=== PATIENT | female | born 1975 | race Caucasian/White ===

== ENCOUNTER 2020-05-18 09:07 | Outpatient (REF) | payer OTHER, SELFPAY ==
[2020-05-18 11:43] LABS: Hematocrit 35.4 % (37-47); Hemoglobin 10.3 g/dl (12.0-16.0); Mean Corpuscular HGB Conc 29.1 g/dl (31.0-35.0); Mean Corpuscular Hemoglobin 20.8 pg (27.0-33.0); Mean Corpuscular Volume 71.4 fL (80-98); Mean Platelet Volume 10.6 fL (9.4-12.3); Platelet Count 435 X10*3/uL (160-400); Red Blood Count 4.96 X10*6/uL (4.20-5.50); Red Cell Distribution Width 20.3 % (11.0-16.0); White Blood Count 6.5 X10*3/uL (4.8-10.8)
[2020-05-18 12:37] LABS: Thyroid Stimulating Hormone 0.56 uIU/mL (0.32-4.0)
[2020-05-21 08:47] LABS: C. trachomatis RNA TMA NOT DETECTED (NOT DETECTED); N. gonorrhoeae RNA TMA NOT DETECTED (NOT DETECTED)
[2020-05-22 02:47] LABS: HPV mRNA E6/E7 rflx Not Detected (Not Detected)
== END 2020-05-18 09:08 | disposition home or self-care (01) ==
LOC: HO.LAB 09:07
PROVIDERS: Visit Provider Advanced Practice Midwife
DX: Z12.4 Encounter for screening for malignant neoplasm of cervix (principal); N92.0 Excessive and frequent menstruation with regular cycle; N39.3 Stress incontinence (female) (male); D64.9 Anemia, unspecified; Z20.2 Contact with and (suspected) exposure to infections with a predominantly sexual mode of transmission
CPT/HCPCS: 36415; 84443; 85027; 87491; 87591; 87624; 88142

== ENCOUNTER 2020-05-30 15:44 | Outpatient (REF) | payer OTHER, SELFPAY ==
--- NOTE | 2020-05-30 15:44 | US_ITS ---
EXAMINATION: PELVIC ULTRASOUND CLINICAL INFORMATION: Excessive and frequent menstruation with regular cycles COMPARISON: None TECHNIQUE: Transabdominal and transvaginal pelvic ultrasound was performed. Transvaginal exam was performed for better visualization of the uterus and ovaries. FINDINGS: The uterus is anteverted and measures 8.9 x 3.7 x 5.4 cm in dimension. No focal uterine lesion is seen. Endometrial thickness is normal estimated at 0.7 cm. There are nabothian cysts in the cervix. The right ovary is normal-appearing and measures 3.6 x 2.4 x 1.9 cm. The left ovary measures 3.8 x 2.6 x 2.6 cm and contains a complex cyst with thickened wall measuring 1.7 x 1.2 x 1.3 cm. There is no fluid in the pelvis. US/US transvaginal IMPRESSION: Small 1.7 x 1.2 x 1.3 cm complex left ovarian cyst with thickened wall. This may represent a resolving physiologic cyst.
--- NOTE | 2020-05-30 15:44 | US_ITS ---
EXAMINATION: PELVIC ULTRASOUND CLINICAL INFORMATION: Excessive and frequent menstruation with regular cycles COMPARISON: None TECHNIQUE: Transabdominal and transvaginal pelvic ultrasound was performed. Transvaginal exam was performed for better visualization of the uterus and ovaries. FINDINGS: The uterus is anteverted and measures 8.9 x 3.7 x 5.4 cm in dimension. No focal uterine lesion is seen. Endometrial thickness is normal estimated at 0.7 cm. There are nabothian cysts in the cervix. The right ovary is normal-appearing and measures 3.6 x 2.4 x 1.9 cm. The left ovary measures 3.8 x 2.6 x 2.6 cm and contains a complex cyst with thickened wall measuring 1.7 x 1.2 x 1.3 cm. There is no fluid in the pelvis. US/US pelvic complete IMPRESSION: Small 1.7 x 1.2 x 1.3 cm complex left ovarian cyst with thickened wall. This may represent a resolving physiologic cyst.
== END 2020-05-30 15:45 | disposition home or self-care (01) ==
LOC: HO.US 15:44
PROVIDERS: Visit Provider Advanced Practice Midwife
DX: N92.0 Excessive and frequent menstruation with regular cycle (principal)
CPT/HCPCS: 76830; 76856

== ENCOUNTER 2020-06-29 09:16 | Outpatient (REF) | payer OTHER, SELFPAY | END 2020-06-29 09:17 | disposition home or self-care (01) | LOC: HO.LAB 09:16 | PROVIDERS: Visit Provider Advanced Practice Midwife | DX: N93.9 Abnormal uterine and vaginal bleeding, unspecified (principal); N83.299 Other ovarian cyst, unspecified side; R10.2 Pelvic and perineal pain | CPT/HCPCS: 58100; 81025; 88305 ==

== ENCOUNTER → 2020-10-20 11:49 | Outpatient (BNVA) | payer OTHER, SELFPAY | PROVIDERS: PCP Physician Assistant Medical; Visit Provider Advanced Practice Midwife ==